=== PATIENT | male | born 1965 | race Caucasian/White ===

== ENCOUNTER 2016-09-05 09:23 | Day surgery (SDC) | payer BC ==
[~2016-09-05] VITALS: Ht 190.5 cm; Wt 104.5 kg
[2016-09-05 09:54] VITALS: BP 115/81; PULSE 67; TEMP 98
[2016-09-05] MEDS ORDERED: ZESTRIL 20MG TA20 MG PO (09:58)
[2016-09-05 10:53] VITALS: BP 103/71; PULSE 74; TEMP 97.6
[2016-09-05 11:00] VITALS: BP 97/71; PULSE 66
[2016-09-05 11:15] VITALS: BP 116/43; PULSE 63
[2016-09-05 11:30] VITALS: BP 90/73; PULSE 56
== END 2016-09-05 11:43 | disposition home or self-care (01) ==
LOC: SDCO 09:23
DX: Z12.11 Encounter for screening for malignant neoplasm of colon (principal); I10 Essential (primary) hypertension
CPT/HCPCS: OP; J2250; J3010; J7030

== ENCOUNTER → 2020-01-09 | Outpatient (CLI) | payer BC ==
[~2020-01-09] MED LIST: ZESTRIL 20MG TA20 MG PO
== END ==
LOC: COL.RAD 14:20
DX: K63.89 Other specified diseases of intestine (principal)
CPT/HCPCS: Q9967